=== PATIENT | female | born 1995 | race Caucasian/White ===

== ENCOUNTER 2018-05-27 07:29 | Day surgery (SDC) | END 2018-05-27 13:41 | disposition home or self-care (01) ==

== ENCOUNTER 2018-05-31 10:23 | Emergency (ER) | END 2018-05-31 12:42 | disposition home or self-care (01) ==

== ENCOUNTER 2018-07-14 15:00 | Emergency (ER) | END 2018-07-14 17:03 | disposition home or self-care (01) ==